=== PATIENT | female | born 1940 | race Caucasian/White ===

== ENCOUNTER 2020-09-17 00:50 | Inpatient (IN) ==
[2020-09-17] MEDS ORDERED: oxyCODONE/Acetamin 5/325 mg TAB PO PRN ×3 (02:46→23:43)
[2020-09-17] MEDS ORDERED: Dextrose 50% Syringe 50 ml 25 GM/50 ML SYRINGE IV PUSH PRN (02:46)
[2020-09-17] MEDS: Ondansetron 4 mg VIAL 2 MG/ML 2 ml VIAL IV PRN ×2 (04:11→11:43)
[2020-09-17] MEDS: HYDROmorphone 0.5 MG/0.5 ML SYRINGE IV SLOW PU PRN ×2 (04:12→10:30)
[2020-09-17 04:24] LABS: ABS Basophils 0.1 10^3/ul (0-0.2); ABS Eosinophils 0.4 10^3/ul (0-0.6); ABS Lymphocytes 2.2 10^3/ul (1.0-4.8); ABS Monocytes 0.9 10^3/ul (0-0.8); ABS Neutrophils 4.2 10^3/ul (1.5-7.7); Eosinophil % 4.8 %; Hematocrit 41 % (35-47); Hemoglobin 14.4 g/dL (12.0-16.0); Lymphocyte % 28.1 %; Mean Corpuscular HGB Conc 35 g/dL (31-36); Mean Corpuscular Hemoglobin 29 pg (27-31); Mean Corpuscular Volume 85 fL (80-97); Mean Platelet Volume 8.4 fL (7.4-10.4); Platelet Count 240 10^3/uL (150-450); Red Cell Distribution Width 15 % (10-15); White Blood Count 7.7 10^3/uL (3.5-10.8)
[2020-09-17 04:33] LABS: Activated Partial Thrombo Time 33.3 seconds (26.0-38.0); INR 1.17 (0.82-1.09)
[2020-09-17 04:41] LABS: BUN/Creatinine Ratio 14.1 (8-20); Calcium 10.4 mg/dL (8.6-10.3); EGFR African American 96.3 (>60); EGFR Non-African American 79.6 (>60); Potassium 3.8 mmol/L (3.5-5.0)
[2020-09-17] MEDS ORDERED: Heparin 5000 UNITS/ML 1 mL VIAL SUBCUT SCH (06:00)
[2020-09-17] MEDS: NS 0.9% 1000 ml BAG 1,000 ML IV SCH (06:36)
[2020-09-17 08:24] LABS: HDL Cholesterol 38.9 mg/dL
[2020-09-17] MEDS: PITAVASTATIN 4 MG PO SCH (09:49)
[2020-09-17 10:57] LABS: Urine Appearance Cloudy; Urine Bilirubin Negative (Negative); Urine Blood Negative (Negative); Urine Color Yellow; Urine Glucose Negative (Negative); Urine Ketones Trace (Negative); Urine Nitrite Negative (Negative); Urine Protein Negative (Negative); Urine Specific Gravity 1.017 (1.010-1.030); Urine Urobilinogen Negative (Negative)
[2020-09-17 11:09] LABS: Urine Bacteria Absent (Absent); Urine Red Blood Cell Absent (Absent); Urine Squamous Epithelial Cell Present (Absent); Urine White Blood Cell 1+(6-10/hpf) (Absent)
[2020-09-17] MEDS ORDERED: fentaNYL 100 mcg/2 ml 50 MCG/ML VIAL ONE ×4 (12:11→21:34)
[2020-09-17] MEDS ORDERED: Propofol 10 MG/ML 20 ML BTL ONE ×3 (12:11→20:13)
[2020-09-17] MEDS ORDERED: Succinylcholine 200 mg VIAL 20 mg/ml 10 ml VIAL (200 mg) ONE (12:11)
[2020-09-17] MEDS ORDERED: Remifentanil 2 MG VIAL ONE ×3 (12:11→17:58)
[2020-09-17] MEDS ORDERED: Lidocaine 2% PF 5 ML VIAL ONE (12:12)
[2020-09-17] MEDS ORDERED: Propofol 10 mg/ml 100 ML BTL 100 ML ONE ×2 (12:13→13:18)
[2020-09-17] MEDS ORDERED: ceFAZolin 2 GM PREMIX 2 GM/50 ML BAG ONE (13:14)
[2020-09-17] MEDS ORDERED: Bupivacaine 0.5% SDV PF 30ML VIAL ONE (13:23)
[2020-09-17] MEDS ORDERED: Bacitracin INJECTION 50,000 UNITS ONE (13:23)
[2020-09-17] MEDS ORDERED: Lidocaine 1% w EPI 1:100,000 MDV 20 ML VIAL ONE (13:24)
[2020-09-17] MEDS ORDERED: Ondansetron 4 mg VIAL 2 MG/ML 2 ml VIAL ONE ×2 (14:04→20:39)
[2020-09-17] MEDS ORDERED: Phenylephrine 40 mcg/mL 10mL (400mcg) SYRINGE ONE ×2 (14:18→14:39)
[2020-09-17] MEDS ORDERED: Phenylephrine IV 10 MG/ML 1 ml VIAL ONE ×2 (14:25→16:24)
[2020-09-17] MEDS ORDERED: EPHEDrine (Pressors) 50 MG/ML VIAL ONE ×2 (14:40→14:50)
[2020-09-17] MEDS ORDERED: Glycopyrrolate IV 0.2 MG/ML 1 ML VIAL ONE (14:49)
[2020-09-17] MEDS ORDERED: Atropine 1 MG/ML INJ 1 ML VIAL ONE (14:51)
[2020-09-17] MEDS ORDERED: Propofol 1,000 MG/100 ML BTL ONE (14:57)
[2020-09-17] MEDS ORDERED: Dexamethasone IV 4 MG/ML VIAL 1 ml VIAL ONE (15:06)
[2020-09-17] MEDS ORDERED: ceFAZolin VIAL VIAL ONE (18:03)
[2020-09-17] MEDS ORDERED: Naloxone 0.4 mg VIAL 0.4 mg/ml 1 ml VIAL IV PRN (18:41)
[2020-09-17] MEDS ORDERED: Prochlorperazine 5 mg/ml 2 ml VIAL (10 mg) IV PRN (18:41)
[2020-09-17] MEDS ORDERED: Acetaminophen IV 1 GM/100ML 1,000 MG/100 ML VIAL IVPB ONE (18:41)
[2020-09-17] MEDS ORDERED: HYDROmorphone 1 MG/1 ML SYRINGE ONE ×3 (20:11→22:36)
[2020-09-17] MEDS ORDERED: Labetalol IV 5 MG/ML 20 ml VIAL ONE (20:58)
[2020-09-17] MEDS: fentaNYL 100 mcg/2 ml 50 MCG/ML VIAL IV PRN ×2 (21:39→21:47)
[2020-09-17] MEDS ORDERED: Acetaminophen IV 1 GM/100ML 100 ML ONE (21:40)
[2020-09-17] MEDS: HYDROmorphone 1 MG/1 ML SYRINGE IV PRN ×5 (21:49→22:25)
[2020-09-17] MEDS ORDERED: HYDROmorphone 1 MG/1 ML SYRINGE IV SLOW PU PRN (22:05)
[2020-09-17] MEDS ORDERED: Prochlorperazine 5 mg/ml 2 ml VIAL (10 mg) ONE (22:22)
[2020-09-18] MEDS: Insulin GLARGINE 100 un/ml 10 ml VIAL SUBCUT SCH ×2 (01:54→21:12)
[2020-09-18] MEDS: HYDROmorphone 0.5 MG/0.5 ML SYRINGE IV SLOW PU PRN ×3 (02:29→20:51)
[2020-09-18] MEDS: oxyCODONE/Acetamin 5/325 mg TAB PO PRN ×2 (06:25→14:23)
[2020-09-18] MEDS ORDERED: Influenza VAC *QUAD* 2020-21* 0.5 ML SYRINGE IM ONE (09:00)
[2020-09-18] MEDS: PITAVASTATIN 4 MG PO SCH (11:19)
[2020-09-19] MEDS: HYDROmorphone 0.5 MG/0.5 ML SYRINGE IV SLOW PU PRN (03:33)
[2020-09-19 05:30] LABS: ABS Lymphocytes 0.8 10^3/ul (1.0-4.8); ABS Monocytes 1.4 10^3/ul (0-0.8); ABS Neutrophils 10.6 10^3/ul (1.5-7.7); Hematocrit 40 % (35-47); Hemoglobin 13.5 g/dL (12.0-16.0); Lymphocyte % 6.2 %; Mean Corpuscular HGB Conc 34 g/dL (31-36); Mean Corpuscular Hemoglobin 29 pg (27-31); Mean Corpuscular Volume 85 fL (80-97); Mean Platelet Volume 8.5 fL (7.4-10.4); Platelet Count 251 10^3/uL (150-450); Red Blood Count 4.66 10^6 /uL (3.70-4.87); Red Cell Distribution Width 15 % (10-15); White Blood Count 12.8 10^3/uL (3.5-10.8)
[2020-09-19 05:46] LABS: BUN/Creatinine Ratio 15.3 (8-20); Calcium 10.1 mg/dL (8.6-10.3); EGFR African American 119.3 (>60); EGFR Non-African American 98.6 (>60); Potassium 3.4 mmol/L (3.5-5.0)
[2020-09-19] MEDS ORDERED: Potassium Chloride LIQUID 20 MEQ/15 ML LIQUID PO ONE (06:12)
[2020-09-19] MEDS: PITAVASTATIN 4 MG PO SCH (08:52)
[2020-09-19] MEDS: oxyCODONE/Acetamin 5/325 mg TAB PO PRN ×2 (10:03→13:56)
[2020-09-19] MEDS ORDERED: Magnesium Hydroxide LIQ 30 ML UDC PO PRN (15:26)
[2020-09-19 18:24] LABS: Urine Appearance Clear; Urine Bilirubin Negative (Negative); Urine Blood Negative (Negative); Urine Color Yellow; Urine Glucose 1+(50 mg/dL) (Negative); Urine Ketones Trace (Negative); Urine Nitrite Negative (Negative); Urine Protein Negative (Negative); Urine Urobilinogen Negative (Negative)
[2020-09-19] MEDS ORDERED: Insulin GLARGINE 100 un/ml 10 ml VIAL SUBCUT ONE (22:43)
[2020-09-19] MEDS: Magnesium Hydroxide LIQ 30 ML UDC PO SCH (22:44)
[2020-09-19] MEDS: Insulin GLARGINE 100 un/ml 10 ml VIAL SUBCUT SCH (22:47)
[2020-09-20] MEDS ORDERED: hydrALAZINE 20 mg/ml 1 ML Vial IV IV SLOW PU ONE ×2 (00:33→03:43)
[2020-09-20 05:00] LABS: Hematocrit 41 % (35-47); Hemoglobin 13.8 g/dL (12.0-16.0); Mean Corpuscular HGB Conc 34 g/dL (31-36); Mean Corpuscular Hemoglobin 29 pg (27-31); Mean Corpuscular Volume 85 fL (80-97); Platelet Count 264 10^3/uL (150-450); Red Blood Count 4.83 10^6 /uL (3.70-4.87); Red Cell Distribution Width 15 % (10-15); White Blood Count 11.3 10^3/uL (3.5-10.8)
[2020-09-20 05:15] LABS: Anion Gap 8 mmol/L (2-11); Blood Urea Nitrogen 11 mg/dL (6-24); CO2 Carbon Dioxide 33 mmol/L (22-32); Calcium 10.2 mg/dL (8.6-10.3); Chloride 95 mmol/L (101-111); EGFR African American 121.7 (>60); EGFR Non-African American 100.5 (>60); Glucose 149 mg/dL (70-100); Potassium 3.2 mmol/L (3.5-5.0); Sodium 136 mmol/L (135-145)
[2020-09-20] MEDS: Magnesium Hydroxide LIQ 30 ML UDC PO SCH ×2 (09:38→21:22)
[2020-09-20] MEDS: PITAVASTATIN 4 MG PO SCH (09:38)
[2020-09-20] MEDS ORDERED: Bupivacaine 0.5% SDV PF 30ML VIAL ONE (09:46)
[2020-09-20] MEDS ORDERED: Lidocaine 1% w EPI 1:200,000 SDV 30 ML VIAL ONE (09:46)
[2020-09-20] MEDS ORDERED: Bacitracin INJECTION 50,000 UNITS ONE (09:47)
[2020-09-20] MEDS ORDERED: Midazolam 2 mg/2 ml VIAL 1 mg/ml 2 ml VIAL (2 mg) ONE (10:08)
[2020-09-20] MEDS ORDERED: Rocuronium 50 mg VIAL 10 mg/ml 5 ml VIAL (50 mg) ONE (10:08)
[2020-09-20] MEDS ORDERED: Dexamethasone IV 4 MG/ML VIAL 1 ml VIAL ONE (10:08)
[2020-09-20] MEDS ORDERED: fentaNYL 250 mcg/5 ml 50 MCG/ML 5 ml VIAL (250 MCG) ONE (10:08)
[2020-09-20] MEDS ORDERED: Remifentanil 2 MG VIAL ONE (10:08)
[2020-09-20] MEDS ORDERED: Propofol 10 MG/ML 20 ML BTL ONE (10:08)
[2020-09-20] MEDS ORDERED: Lidocaine 2% PF 5 ML VIAL ONE (10:09)
[2020-09-20] MEDS ORDERED: Phenylephrine 40 mcg/mL 10mL (400mcg) SYRINGE ONE (10:09)
[2020-09-20] MEDS ORDERED: EPHEDrine (Pressors) 50 MG/ML VIAL ONE (10:09)
[2020-09-20] MEDS ORDERED: Sterile Water for Inj 10 ML ONE (10:09)
[2020-09-20] MEDS ORDERED: Phenylephrine IV 10 MG/ML 1 ml VIAL ONE (10:13)
[2020-09-20] MEDS: KCL 20 MEQ/100 ML IVPREMIX 20 MEQ/100 ML BAG IV SCH ×2 (10:19→12:50)
[2020-09-20 11:18] LABS: ALT 27 U/L (7-52); AST 33 U/L (13-39); Albumin 3.5 g/dL (3.2-5.2); Albumin/Globulin Ratio 1.2 (1-3); Alkaline Phosphatase 86 U/L (34-104); Cholesterol 131 mg/dL; HDL Cholesterol 39.9 mg/dL; LDL Cholesterol 64 mg/dL; Magnesium 1.8 mg/dL (1.9-2.7); Total Protein 6.5 g/dL (6.4-8.9); Triglycerides 136 mg/dL
[2020-09-20 11:25] LABS: Troponin I 0.04 ng/mL (<0.03)
[2020-09-20] MEDS ORDERED: Metoprolol Tartrate 5 mg VIAL 5 ml VIAL (1 mg/ml) IV PRN (12:22)
[2020-09-20] MEDS: oxyCODONE/Acetamin 5/325 mg TAB PO PRN (12:47)
[2020-09-20] MEDS: NS 0.9% 1000 ml BAG 1,000 ML IV SCH (12:56)
[2020-09-20] MEDS ORDERED: Iodixanol (CONTRAST) 320 MG/ML 100 ML SDV IV ONE (13:24)
[2020-09-20 16:26] LABS: BUN/Creatinine Ratio 29.6 (8-20); Calcium 10.5 mg/dL (8.6-10.3); EGFR African American 132.1 (>60); EGFR Non-African American 109.2 (>60); Potassium 3.4 mmol/L (3.5-5.0)
[2020-09-20] MEDS ORDERED: Potassium Chloride LIQUID 20 MEQ/15 ML LIQUID PO ONE (17:19)
[2020-09-20] MEDS: Insulin GLARGINE 100 un/ml 10 ml VIAL SUBCUT SCH (21:19)
[2020-09-21] MEDS: oxyCODONE/Acetamin 5/325 mg TAB PO PRN ×2 (03:09→12:01)
[2020-09-21] MEDS: NS 0.9% 1000 ml BAG 1,000 ML IV SCH (03:10)
[2020-09-21 08:19] LABS: Anion Gap 7 mmol/L (2-11); BUN/Creatinine Ratio 32.7 (8-20); Blood Urea Nitrogen 16 mg/dL (6-24); CO2 Carbon Dioxide 29 mmol/L (22-32); Calcium 9.8 mg/dL (8.6-10.3); Chloride 98 mmol/L (101-111); EGFR African American 147.8 (>60); EGFR Non-African American 122.1 (>60); Glucose 156 mg/dL (70-100); Potassium 3.4 mmol/L (3.5-5.0); Sodium 134 mmol/L (135-145)
[2020-09-21] MEDS: PITAVASTATIN 4 MG PO SCH (08:51)
[2020-09-21] MEDS: Magnesium Hydroxide LIQ 30 ML UDC PO SCH (08:51)
[2020-09-21] MEDS ORDERED: KCL 10 MEQ/50 ML IVPREMIX 10 MEQ/50 ML BAG IV SCH (10:28)
[2020-09-21] MEDS ORDERED: Potassium Chloride LIQUID 20 MEQ/15 ML LIQUID PO ONE (10:28)
[2020-09-21] MEDS ORDERED: Metoprolol Tartrate 5 mg VIAL 5 ml VIAL (1 mg/ml) IV PRN (10:37)
[2020-09-21] MEDS ORDERED: KCL 20 MEQ/100 ML IVPREMIX 20 MEQ/100 ML BAG IV ONE (11:15)
[2020-09-21 11:30] LABS: Magnesium 1.8 mg/dL (1.9-2.7)
[2020-09-21] MEDS ORDERED: Magnesium Sulfate 2 gm BAG 2 GM/50 ML BAG IVPB ONE (11:33)
[2020-09-21] MEDS ORDERED: Magnesium Sulfate 2 gm BAG 2 GM/50 ML BAG ONE (11:47)
[2020-09-21 12:09] LABS: Troponin I 0.04 ng/mL (<0.03)
[2020-09-21] MEDS ORDERED: Rocuronium 50 mg VIAL 10 mg/ml 5 ml VIAL (50 mg) ONE ×2 (14:09→17:56)
[2020-09-21] MEDS ORDERED: Lidocaine 2% PF 5 ML VIAL ONE (14:09)
[2020-09-21] MEDS ORDERED: Etomidate 20 mg/10 ml 2 MG/ML 10 ml VIAL ONE (14:09)
[2020-09-21] MEDS ORDERED: fentaNYL 100 mcg/2 ml 50 MCG/ML VIAL ONE ×2 (14:09→23:05)
[2020-09-21] MEDS ORDERED: Bupivacaine 0.25% SDV 30 ML ONE (14:25)
[2020-09-21] MEDS ORDERED: Bacitracin INJECTION 50,000 UNITS ONE (14:26)
[2020-09-21 15:10] LABS: Magnesium 2.3 mg/dL (1.9-2.7); Potassium 3.7 mmol/L (3.5-5.0)
[2020-09-21] MEDS ORDERED: Albumin Human 5% 12.5 GM/250 ML BTL IV PRN (15:17)
[2020-09-21] MEDS ORDERED: Vasopressin 100 UNITS in D5W 250 ML BAG IV SCH (15:30)
[2020-09-21] MEDS ORDERED: HYDROmorphone 1 MG/1 ML SYRINGE ONE ×3 (16:19→20:53)
[2020-09-21] MEDS ORDERED: ceFAZolin 2 GM PREMIX 2 GM/50 ML BAG ONE ×2 (16:25→20:22)
[2020-09-21] MEDS ORDERED: Acetaminophen IV 1 GM/100ML 100 ML ONE (17:20)
[2020-09-21] MEDS ORDERED: Dexamethasone IV 4 MG/ML VIAL 1 ml VIAL ONE (17:21)
[2020-09-21] MEDS ORDERED: Propofol 10 MG/ML 20 ML BTL ONE (20:24)
[2020-09-21] MEDS ORDERED: diPHENhydraMINE IV 50 MG/ML 1 ml VIAL (BENADRYL) IV PRN (21:18)
[2020-09-21] MEDS ORDERED: Naloxone 0.4 mg VIAL 0.4 mg/ml 1 ml VIAL IV PRN (21:18)
[2020-09-21] MEDS ORDERED: Ondansetron 4 mg VIAL 2 MG/ML 2 ml VIAL ONE (21:19)
[2020-09-21] MEDS ORDERED: Metoprolol Tartrate 5 mg VIAL 5 ml VIAL (1 mg/ml) ONE (21:22)
[2020-09-21 22:30] LABS: ABS Lymphocytes 0.5 10^3/ul (1.0-4.8); ABS Monocytes 0.6 10^3/ul (0-0.8); ABS Neutrophils 11.6 10^3/ul (1.5-7.7); Eosinophil % 0.4 %; Hematocrit 37 % (35-47); Hemoglobin 12.6 g/dL (12.0-16.0); Mean Corpuscular HGB Conc 34 g/dL (31-36); Mean Corpuscular Hemoglobin 29 pg (27-31); Mean Corpuscular Volume 84 fL (80-97); Mean Platelet Volume 8.3 fL (7.4-10.4); Platelet Count 320 10^3/uL (150-450); Red Blood Count 4.34 10^6 /uL (3.70-4.87); Red Cell Distribution Width 14 % (10-15); White Blood Count 12.8 10^3/uL (3.5-10.8)
[2020-09-21 22:46] LABS: Anion Gap 7 mmol/L (2-11); BUN/Creatinine Ratio 30.4 (8-20); Blood Urea Nitrogen 17 mg/dL (6-24); CO2 Carbon Dioxide 25 mmol/L (22-32); Calcium 9.2 mg/dL (8.6-10.3); Chloride 101 mmol/L (101-111); EGFR African American 126.7 (>60); EGFR Non-African American 104.7 (>60); Glucose 198 mg/dL (70-100); Phosphorus 3.4 mg/dL (2.5-5.0); Potassium 4.4 mmol/L (3.5-5.0); Sodium 133 mmol/L (135-145)
[2020-09-21 22:54] LABS: Troponin I 0.03 ng/mL (<0.03)
[2020-09-21] MEDS: fentaNYL 100 mcg/2 ml 50 MCG/ML VIAL IV PRN ×4 (23:07→23:56)
[2020-09-22] MEDS ORDERED: Enalaprilat IV 1.25 mg/ml 1 ml VIAL (1.25 MG) IV PRN (00:25)
[2020-09-22] MEDS: Magnesium Hydroxide LIQ 30 ML UDC PO SCH ×3 (00:42→20:17)
[2020-09-22] MEDS ORDERED: Metoprolol Tartrate 5 mg VIAL 5 ml VIAL (1 mg/ml) ONE (00:45)
[2020-09-22] MEDS ORDERED: Insulin GLARGINE 100 un/ml 10 ml VIAL SUBCUT ONE (00:51)
[2020-09-22] MEDS: Metoprolol Tartrate 5 mg VIAL 5 ml VIAL (1 mg/ml) IV PRN ×2 (00:54→06:45)
[2020-09-22] MEDS: Insulin GLARGINE 100 un/ml 10 ml VIAL SUBCUT SCH ×2 (01:01→20:18)
[2020-09-22] MEDS: NS 0.9% 1000 ml BAG 1,000 ML IV SCH (01:36)
[2020-09-22 07:40] LABS: Hematocrit 37 % (35-47); Hemoglobin 12.4 g/dL (12.0-16.0); Mean Corpuscular HGB Conc 34 g/dL (31-36); Mean Corpuscular Hemoglobin 29 pg (27-31); Mean Corpuscular Volume 85 fL (80-97); Mean Platelet Volume 8.7 fL (7.4-10.4); Platelet Count 293 10^3/uL (150-450); Red Blood Count 4.33 10^6 /uL (3.70-4.87); Red Cell Distribution Width 14 % (10-15); White Blood Count 12.2 10^3/uL (3.5-10.8)
[2020-09-22 07:48] LABS: BUN/Creatinine Ratio 26.5 (8-20); Calcium 9.5 mg/dL (8.6-10.3); EGFR African American 147.8 (>60); EGFR Non-African American 122.1 (>60); Magnesium 1.9 mg/dL (1.9-2.7); Potassium 3.9 mmol/L (3.5-5.0)
[2020-09-22 08:53] LABS: ABS Monocytes 1.6 10^3/ul (0-0.8); ABS Neutrophils 9.6 10^3/ul (1.5-7.7); Eosinophil % 0.4 %; Lymphocyte % 7.9 %
[2020-09-22] MEDS: Calcium/Vitamin D TAB 250/125 TAB PO SCH ×2 (09:44→18:02)
[2020-09-22] MEDS: PITAVASTATIN 4 MG PO SCH (10:19)
[2020-09-22 12:33] LABS: TSH Ultra Thyroid Stim Horm 0.49 mcIU/mL (0.34-5.60)
[2020-09-22 12:34] LABS: Free T3 2.5 pg/mL (2.5-3.9)
[2020-09-22 12:35] LABS: Free T4 1.51 ng/dL (0.61-1.12)
[2020-09-22] MEDS ORDERED: Potassium Chloride LIQUID 20 MEQ/15 ML LIQUID PO ONE (12:39)
[2020-09-22] MEDS ORDERED: Magnesium Sulfate 2 gm BAG 2 GM/50 ML BAG IVPB ONE (12:40)
[2020-09-23] MEDS: Calcium/Vitamin D TAB 250/125 TAB PO SCH ×3 (01:40→18:23)
[2020-09-23 05:52] LABS: Hematocrit 37 % (35-47); Hemoglobin 12.2 g/dL (12.0-16.0); Mean Corpuscular HGB Conc 33 g/dL (31-36); Mean Corpuscular Hemoglobin 28 pg (27-31); Mean Corpuscular Volume 85 fL (80-97); Mean Platelet Volume 8.4 fL (7.4-10.4); Platelet Count 281 10^3/uL (150-450); Red Blood Count 4.34 10^6 /uL (3.70-4.87); Red Cell Distribution Width 14 % (10-15); White Blood Count 14.4 10^3/uL (3.5-10.8)
[2020-09-23 06:06] LABS: Calcium 9.9 mg/dL (8.6-10.3); Potassium 3.4 mmol/L (3.5-5.0)
[2020-09-23 06:12] LABS: BUN/Creatinine Ratio 22.2 (8-20); EGFR African American 163.1 (>60); EGFR Non-African American 134.8 (>60)
[2020-09-23 06:41] LABS: ABS Basophils 0.4 10^3/ul (0-0.2); ABS Eosinophils 0.2 10^3/ul (0-0.6); ABS Lymphocytes 0.7 10^3/ul (1.0-4.8); ABS Monocytes 1.4 10^3/ul (0-0.8); ABS Neutrophils 11.7 10^3/ul (1.5-7.7); Eosinophil % 1.1 %
[2020-09-23] MEDS: KCL 20 MEQ/100 ML IVPREMIX 20 MEQ/100 ML BAG IV SCH ×3 (07:42→21:27)
[2020-09-23] MEDS: Magnesium Hydroxide LIQ 30 ML UDC PO SCH ×2 (07:58→19:48)
[2020-09-23] MEDS: PITAVASTATIN 4 MG PO SCH (08:07)
[2020-09-23] MEDS ORDERED: Calcium Carb (TUMS) 500 mg CHEW TAB PO PRN (16:55)
[2020-09-23] MEDS: Insulin GLARGINE 100 un/ml 10 ml VIAL SUBCUT SCH (19:49)
[2020-09-23] MEDS ORDERED: KCL 20 MEQ/100 ML IVPREMIX 20 MEQ/100 ML BAG IV ONE (21:00)
[2020-09-24] MEDS: Calcium/Vitamin D TAB 250/125 TAB PO SCH ×3 (01:23→18:03)
[2020-09-24 06:27] LABS: BUN/Creatinine Ratio 25.5 (8-20); EGFR African American 141.1 (>60); EGFR Non-African American 116.6 (>60); Magnesium 1.9 mg/dL (1.9-2.7); Potassium 3.8 mmol/L (3.5-5.0)
[2020-09-24] MEDS ORDERED: KCL 20 MEQ/100 ML IVPREMIX 20 MEQ/100 ML BAG IV ONE (07:27)
[2020-09-24] MEDS ORDERED: Magnesium Sulfate 2 gm BAG 2 GM/50 ML BAG IVPB ONE (07:28)
[2020-09-24] MEDS: PITAVASTATIN 4 MG PO SCH (10:42)
[2020-09-24] MEDS: Magnesium Hydroxide LIQ 30 ML UDC PO SCH ×2 (10:42→22:21)
[2020-09-24] MEDS ORDERED: ZOLEDRONIC ACID IV ONE (19:24)
[2020-09-24] MEDS ORDERED: MANNITOL IV ONE (19:24)
[2020-09-24] MEDS: Insulin GLARGINE 100 un/ml 10 ml VIAL SUBCUT SCH (21:49)
[2020-09-25] MEDS: Calcium/Vitamin D TAB 250/125 TAB PO SCH ×3 (00:20→17:02)
[2020-09-25] MEDS: Metoprolol Tartrate 5 mg VIAL 5 ml VIAL (1 mg/ml) IV PRN (04:15)
[2020-09-25 07:24] LABS: ABS Basophils 0.1 10^3/ul (0-0.2); ABS Eosinophils 0.2 10^3/ul (0-0.6); ABS Lymphocytes 1.3 10^3/ul (1.0-4.8); ABS Neutrophils 8.5 10^3/ul (1.5-7.7); Eosinophil % 2.2 %; Hematocrit 36 % (35-47); Lymphocyte % 11.7 %; Mean Corpuscular HGB Conc 33 g/dL (31-36); Mean Corpuscular Hemoglobin 28 pg (27-31); Mean Corpuscular Volume 85 fL (80-97); Mean Platelet Volume 8.7 fL (7.4-10.4); Platelet Count 356 10^3/uL (150-450); Red Blood Count 4.26 10^6 /uL (3.70-4.87); Red Cell Distribution Width 14 % (10-15); White Blood Count 11.2 10^3/uL (3.5-10.8)
[2020-09-25 07:37] LABS: BUN/Creatinine Ratio 21.2 (8-20); Calcium 10.3 mg/dL (8.6-10.3); Magnesium 1.8 mg/dL (1.9-2.7); Potassium 4.1 mmol/L (3.5-5.0)
[2020-09-25] MEDS: Magnesium Hydroxide LIQ 30 ML UDC PO SCH ×2 (10:25→21:11)
[2020-09-25] MEDS ORDERED: Magnesium Sulfate IV 3 GM in NS 0.9% 100 ml BAG 100 ML IVPB ONE (11:00)
[2020-09-25] MEDS: Insulin GLARGINE 100 un/ml 10 ml VIAL SUBCUT SCH (20:29)
[2020-09-26] MEDS: Calcium/Vitamin D TAB 250/125 TAB PO SCH ×3 (01:55→18:14)
[2020-09-26] MEDS: Magnesium Hydroxide LIQ 30 ML UDC PO SCH ×2 (08:51→22:49)
[2020-09-26] MEDS: Insulin GLARGINE 100 un/ml 10 ml VIAL SUBCUT SCH (22:46)
[2020-09-27] MEDS: Calcium/Vitamin D TAB 250/125 TAB PO SCH ×3 (01:50→17:53)
[2020-09-27] MEDS: Magnesium Hydroxide LIQ 30 ML UDC PO SCH ×3 (10:59→21:31)
[2020-09-27] MEDS: Nitrofurantoin (monohydrate/macrocrystals) 100 mg CAP PO SCH ×2 (14:48→20:59)
[2020-09-27] MEDS: Insulin GLARGINE 100 un/ml 10 ml VIAL SUBCUT SCH (20:57)
[2020-09-28] MEDS: Calcium/Vitamin D TAB 250/125 TAB PO SCH ×3 (03:06→17:50)
[2020-09-28] MEDS: Magnesium Hydroxide LIQ 30 ML UDC PO SCH ×2 (08:03→21:39)
[2020-09-28] MEDS: Nitrofurantoin (monohydrate/macrocrystals) 100 mg CAP PO SCH ×2 (08:15→21:39)
[2020-09-28] MEDS: Sulfamethox/Trimethoprim DS TAB 800/160 mg PO SCH (11:45)
[2020-09-28] MEDS: Insulin GLARGINE 100 un/ml 10 ml VIAL SUBCUT SCH (21:38)
[2020-09-29] MEDS: Calcium/Vitamin D TAB 250/125 TAB PO SCH ×3 (04:08→17:46)
[2020-09-29 07:11] LABS: ABS Eosinophils 0.1 10^3/ul (0-0.6); ABS Lymphocytes 1.3 10^3/ul (1.0-4.8); ABS Monocytes 1.1 10^3/ul (0-0.8); ABS Neutrophils 9.1 10^3/ul (1.5-7.7); Eosinophil % 1.1 %; Hematocrit 40 % (35-47); Hemoglobin 13.4 g/dL (12.0-16.0); Lymphocyte % 11.2 %; Mean Corpuscular HGB Conc 33 g/dL (31-36); Mean Corpuscular Hemoglobin 28 pg (27-31); Mean Corpuscular Volume 85 fL (80-97); Mean Platelet Volume 8.6 fL (7.4-10.4); Platelet Count 467 10^3/uL (150-450); Red Blood Count 4.74 10^6 /uL (3.70-4.87); Red Cell Distribution Width 15 % (10-15); White Blood Count 11.7 10^3/uL (3.5-10.8)
[2020-09-29 07:38] LABS: BUN/Creatinine Ratio 26.6 (8-20); Calcium 9.4 mg/dL (8.6-10.3); EGFR African American 108.6 (>60); EGFR Non-African American 89.7 (>60); Potassium 3.5 mmol/L (3.5-5.0)
[2020-09-29] MEDS: Magnesium Hydroxide LIQ 30 ML UDC PO SCH ×2 (08:57→20:38)
[2020-09-29] MEDS: Sulfamethox/Trimethoprim DS TAB 800/160 mg PO SCH (08:57)
[2020-09-29] MEDS: Nitrofurantoin (monohydrate/macrocrystals) 100 mg CAP PO SCH ×2 (09:08→20:38)
[2020-09-29] MEDS ORDERED: HYDROmorphone 0.5 MG/0.5 ML SYRINGE IV SLOW PU ONE (13:28)
[2020-09-29] MEDS: Insulin GLARGINE 100 un/ml 10 ml VIAL SUBCUT SCH (22:17)
[2020-09-30] MEDS: Calcium/Vitamin D TAB 250/125 TAB PO SCH ×2 (02:34→08:20)
[2020-09-30 07:26] VITALS: BP 154/69
[2020-09-30] MEDS: Nitrofurantoin (monohydrate/macrocrystals) 100 mg CAP PO SCH (08:20)
[2020-09-30] MEDS: Sulfamethox/Trimethoprim DS TAB 800/160 mg PO SCH (08:21)
[2020-09-30] MEDS: Magnesium Hydroxide LIQ 30 ML UDC PO SCH (08:23)
[2020-09-30] MEDS ORDERED: oxyCODONE/Acetamin 5/325 mg TAB PO ONE (10:54)
== END 2020-09-30 11:15 | DRG 460 ==
LOC: ED 00:50 → SSU 05:23 → MEDTELE 09-20 11:27 → SSU 09-21 23:11
PROVIDERS: ADMIT Student in an Organized Health Care Education/Training Program; ATTEND Internal Medicine